=== PATIENT | female | born 1950 | race Caucasian/White ===

== ENCOUNTER 2018-04-02 15:17 | Outpatient (CLI) | payer OTHER ==
[~2018-04-02 15:17] MED LIST: Iopamidol 370 76% 100 ML VIAL ONE
--- NOTE | 2018-04-02 17:55 | CT ---
CT OF CHEST PERFORMED WITH INTRAVENOUS CONTRAST ENHANCEMENT: 04/02/18 HISTORY: Lower lobe pneumonia. Cough for months. COMPARISON: A 04/13/16 CT examination and a chest x-ray of 11/13/17. There is a persistent parenchymal density in the left upper lobe with air bronchograms somewhat mass- like in appearance but relatively stable. Questionably slightly more prominent on today's study as co mpared to the prior examination. Given the minimal ion exchange operator the time interval, I would favor that this still represents scarring. There is still some residual changes within the right middle lobe. Th izabel are somewhat less prominent than the prior examination. Some of the changes along the anterior an d most medial border of the right middle lobe in the anterior recess region are more prominent and co uld indicate that there is a combination of some scarring and some acute infiltrative element. The lo wer lobes are unremarkable. Parenchymal changes in the lung bases seen on the previous study have res olved. I do not appreciate any significant mediastinal or hilar adenopathy. The thoracic aorta is normal in caliber. No significant axillary adenopathy. The visualized liver parenchyma shows no focal findings. Right and left adrenal glands are normal. IMPRESSION: 1. Left upper lobe parenchymal density which appears to represent scar relatively stable as comp ared to the 2017 study. 2. Right middle lobe parenchymal changes have changed slightly in character since the prior exam ination. More of the changes were lying along the major fissure on the prior study, now slightly more prominent parenchymal changes in the anterior recess region which could indicate there is some acute infiltrative element in this area. POS: DION
== END 2018-04-02 15:18 | disposition home or self-care (01) ==
LOC: BICCT 15:17
PROVIDERS: ATTEND Family Medicine
DX: J18.1 Lobar pneumonia, unspecified organism (principal)
CPT/HCPCS: 71260; 82565

== ENCOUNTER 2018-04-27 08:36 | Outpatient (CLI) | payer OTHER ==
--- NOTE | 2018-05-31 13:20 | MMO ---
Bilateral MAMMO Bilat Screen [facility]. CLINICAL HISTORY: Patient is 67 years old and is seen for screening. The patient has no family history of breast cancer. The patient has no personal history of cancer. VIEWS: The views performed were: bilateral craniocaudal with tomosynthesis and bilateral mediolateral oblique with tomosynthesis. MAMMOGRAM FINDINGS: There are scattered fibroglandular densities. Finding 1: This mammogram will be treated as a baseline mammogram as attempts to obtain prior mammogram images have been unsuccessful. Finding 2: There are vascular calcifications seen in both breasts. Finding 3: There is a focal asymmetry seen in the upper-outer region of the left breast. IMPRESSION: FINDING 3: FOCAL ASYMMETRY IN THE LEFT BREAST REQUIRES ADDITIONAL EVALUATION. ADDITIONAL PROJECTIONS ARE RECOMMENDED. AN ULTRASOUND EXAM IS RECOMMENDED IF NEEDED. THE RESULTS OF THIS EXAM WERE SENT TO THE PATIENT. ACR BI-RADS Category 0 - Incomplete: Need additional imaging evaluation. [facility] will notify the patient of the need for additional imaging services. MAMMOGRAPHY NOTE: 1. A negative mammogram report should not delay a biopsy if a dominant of clinically suspicious mass is present. 2. Approximately 10% to 15% of breast cancers are not detected by mammography. 3. Adenosis and dense breasts may obscure an underlying neoplasm.
== END 2018-04-27 08:37 | disposition home or self-care (01) ==
LOC: BICMAMMO 08:36
PROVIDERS: ATTEND Family Medicine
DX: Z12.31 Encounter for screening mammogram for malignant neoplasm of breast (principal); N64.89 Other specified disorders of breast
CPT/HCPCS: 77063; 77067

== ENCOUNTER 2018-06-14 08:23 | Outpatient (CLI) | payer OTHER ==
--- NOTE | 2018-06-14 09:27 | MMO ---
Left Breast MAMMO Unilat Diag [facility]. CLINICAL HISTORY: Patient is 67 years old and is seen for follow-up at short-interval from prior study. The patient has no family history of breast cancer. The patient has no personal history of cancer. VIEWS: The views performed were: left craniocaudal spot compression; left mediolateral oblique spot compression; and left mediolateral with tomosynthesis. FILMS COMPARED: The present examination has been compared to prior imaging studies performed at [facility] on 04/27/2018 and 06/14/2018. MAMMOGRAM FINDINGS: There are scattered fibroglandular densities. There is a focal asymmetry seen in the left breast. Small cyst on ultrasound may represent mammo finding. IMPRESSION: FOCAL ASYMMETRY IN THE LEFT BREAST IS PROBABLY BENIGN. FOLLOW-UP IN 6 MONTHS IS RECOMMENDED. THE RESULTS OF THIS EXAM WERE SENT TO THE PATIENT. ACR BI-RADS Category 3 - Probably benign finding - short interval follow-up suggested. [facility] will notify the patient of the need for additional imaging services. MAMMOGRAPHY NOTE: 1. A negative mammogram report should not delay a biopsy if a dominant of clinically suspicious mass is present. 2. Approximately 10% to 15% of breast cancers are not detected by mammography. 3. Adenosis and dense breasts may obscure an underlying neoplasm.
--- NOTE | 2018-06-14 10:12 | ULT ---
LEFT BREAST ULTRASOUND: HISTORY: Followup abnormality on left breast mammogram from 06/14/2018 and 04/27/2018. FINDINGS: A nodular area of concern was noted in the upper outer left breast on prior mammogram. This area is evaluated with ultrasound from the 9 o'clock to 12 o'clock position. In the 10 o'clock position 4 cm from the nipple there is a very small approximately 0.2 x 0.4 x 0.3 cm diameter cyst. I am not cert ain whether this corresponds to the mammographic area or not. IMPRESSION: BIRADS category 3, probably benign findings. Six-month followup left unilateral diagnostic mammogram and left breast ultrasound recommended for further assessment. POS: OFF
== END 2018-06-14 08:24 | disposition home or self-care (01) ==
LOC: BICMAMMO 08:23
PROVIDERS: ATTEND Family Medicine
DX: N64.89 Other specified disorders of breast (principal)
CPT/HCPCS: G0279

== ENCOUNTER 2019-05-03 13:07 | Outpatient (CLI) | payer MEDICARE, BC ==
--- NOTE | 2019-05-03 13:24 | RAD ---
EXAM: Chest 2 views: HISTORY: Dyspnea COMPARISON: None. FINDINGS: There is a normal-sized cardiomediastinal silhouette. There is no evidence of consolidation, mass, or pleural effusion. Degenerative changes are seen in the spine. Hardware seen in the cervical spine. IMPRESSION: No evidence of acute cardiopulmonary disease
== END 2019-05-03 13:08 | disposition home or self-care (01) ==
LOC: RAD 13:07
PROVIDERS: ATTEND Internal Medicine
DX: R06.00 Dyspnea, unspecified (principal)
CPT/HCPCS: 71046

== ENCOUNTER 2020-07-24 09:47 | Outpatient (CLI) | payer MEDICARE | END 2020-07-24 09:48 | disposition home or self-care (01) | LOC: BICRAD 09:47 | PROVIDERS: ATTEND Internal Medicine Critical Care Medicine | DX: R06.00 Dyspnea, unspecified (principal) | CPT/HCPCS: 71046 ==

== ENCOUNTER 2021-07-24 10:25 | Outpatient (CLI) | payer BC, MEDICARE, OTHER ==
[2019-12-02 12:01] LABS: SARS-CoV-2 MS2 Positive; SARS-CoV-2 N Gene Negative; SARS-CoV-2 S Gene Negative; SARS-CoV-2 by NAA Not Detected (NotDetected); SARS-CoV-2 orf1ab Negative
== END 2021-07-24 10:26 | disposition home or self-care (01) ==
LOC: RAD 10:25
PROVIDERS: ATTEND Internal Medicine Critical Care Medicine
DX: R06.00 Dyspnea, unspecified (principal)
CPT/HCPCS: 71046; U0003

== ENCOUNTER 2022-10-30 14:22 | Outpatient (CLI) | payer MEDICARE | END 2022-10-30 14:23 | disposition home or self-care (01) | LOC: SCSMRI 14:22 | PROVIDERS: ATTEND Orthopaedic Surgery | DX: M24.811 Other specific joint derangements of right shoulder, not elsewhere classified (principal); M75.121 Complete rotator cuff tear or rupture of right shoulder, not specified as traumatic; M19.011 Primary osteoarthritis, right shoulder; M25.411 Effusion, right shoulder; M67.813 Other specified disorders of tendon, right shoulder ==

== ENCOUNTER 2022-11-18 08:39 | Outpatient (CLI) | payer MEDICARE ==
[2022-11-18 10:08] LABS: #Basophils 0.1 10x3/uL (0.0-0.2); #Eosinphils 0.1 10x3/uL (0.0-0.5); #Monocytes 0.5 10x3/uL (0.0-1.1); #Neutrophils 3.4 10x3/uL (1.5-8.4); %Eosinophils 2.3 % (0.0-6.0); %Lymphocytes 31.9 % (18.0-47.0); %Monocytes 8.7 % (0.0-10.0); %Neutrophils 55.9 % (40.0-75.0); Hematocrit 40.9 % (34.9-44.5); Hemoglobin 13.3 g/dL (12.0-15.5); Mean Corpuscular HGB CONC 32.5 g/dL (32.0-36.0); Mean Corpuscular Hemoglobin 29.6 pg (27.0-33.0); Mean Corpuscular Volume 90.9 fl (81.6-98.3); Mean Platelet Volume 10.6 fl (7.4-10.4); Platelet Count 195 10x3/uL (150-450); RBC Distribution Width 13.2 % (11.5-14.5); White Blood Cell (WBC) Count 6.1 10x3/uL (3.5-10.5)
[2022-11-18 10:17] LABS: Anion Gap 13 mmol/L (10-20); BUN (Urea Nitrogen) 12 mg/dL (9.8-20.1); Calc. Creatinine Clearance 0 mL/min (70-130); Calcium 9.2 mg/dL (7.8-10.44); Carbon Dioxide 28 mmol/L (23-31); Chloride 105 mmol/L (98-107); Estimated GFR 83; Glucose 93 mg/dL (83-110); Potassium 4.1 mmol/L (3.5-5.1); Sodium 142 mmol/L (136-145)
== END 2022-11-18 08:40 | disposition home or self-care (01) ==
LOC: LABBT 08:39
PROVIDERS: ATTEND Orthopaedic Surgery
DX: Z01.818 Encounter for other preprocedural examination (principal); S46.011A Strain of muscle(s) and tendon(s) of the rotator cuff of right shoulder, initial encounter
CPT/HCPCS: 80048; 85025; 93005; 93010

== ENCOUNTER 2022-11-21 08:42 | Day surgery (SDC) | payer MEDICARE ==
[2022-11-18 09:36] VITALS: BMI 24.0
[2022-11-21] MEDS ORDERED: Vancomycin 1 GM/200 ML (FROZEN) BAG ONE (09:15)
[2022-11-21] MEDS ORDERED: Midazolam HCl 2 mg/2 ml Vial ONE (10:06)
[2022-11-21] MEDS ORDERED: fentaNYL 50 mcg/mL 1 mL Vial ONE ×2 (10:06→10:37)
[2022-11-21] MEDS ORDERED: Bupivacaine PF 0.5% 30 ML VIAL ONE (10:06)
[2022-11-21] MEDS ORDERED: Sodium Chloride 0.9% 0 ML ONE (10:19)
[2022-11-21] MEDS ORDERED: CEFAZOLIN 2 GM VIAL ONE ×2 (10:19→11:35)
[2022-11-21] MEDS ORDERED: Phenylephrine 10 MG/ML VIAL ONE (10:33)
[2022-11-21] MEDS ORDERED: Bupivacaine HCl 0.5%/Epinephrine 1:200,000/PF 30 ml Vial ONE (10:35)
[2022-11-21] MEDS ORDERED: Zolpidem Tartrate 5 MG TAB PO PRN (11:00)
[2022-11-21] MEDS ORDERED: Ondansetron PF 4 MG/2 ML Vial IVP PRN (11:00)
[2022-11-21] MEDS ORDERED: HYDROcodone/Acetaminophen 10/325 mg Tablet PO PRN ×2 (11:00)
[2022-11-21] MEDS ORDERED: traMADol HCl 50 MG TAB PO PRN ×2 (11:00)
[2022-11-21] MEDS ORDERED: Ropivacaine 0.2% 550 ML 550 ML NERVE BLCK SCH (11:00)
[2022-11-21] MEDS ORDERED: Promethazine HCl 25 MG/ML VIAL IM PRN (11:00)
[2022-11-21] MEDS ORDERED: Sodium Chloride 0.9% 100 ML ONE (11:35)
[2022-11-21] MEDS ORDERED: Rocuronium Bromide 10 MG/ML (10ML VIAL) ONE (11:44)
[2022-11-21] MEDS ORDERED: Lidocaine 1% PF 5 ML VIAL ONE (11:44)
[2022-11-21] MEDS ORDERED: NEOSTIGMINE 3 MG/3 ML SYR 3 MG/3 ML SYRINGE ONE (11:44)
[2022-11-21] MEDS ORDERED: Ketorolac Tromethamine 30 MG/ML VIAL ONE (11:44)
[2022-11-21] MEDS ORDERED: Dexamethasone 20 MG/5 ML VIAL ONE (11:44)
[2022-11-21] MEDS ORDERED: PROPOFOL 200 MG/20 ML VIAL ONE (11:44)
[2022-11-21] MEDS ORDERED: Ondansetron PF 4 MG/2 ML Vial ONE (11:44)
[2022-11-21] MEDS ORDERED: Glycopyrrolate 0.2 MG/ML 5 ML SYRINGE ONE (11:44)
[2022-11-21] MEDS ORDERED: ePHEDrine Sulfate 50 MG/10 ML VIAL ONE (11:44)
[2022-11-21] MEDS ORDERED: Ketorolac Tromethamine 30 MG/ML VIAL IVP SCH (12:00)
[2022-11-21] MEDS ORDERED: HYDROcodone/Acetaminophen 5/325 mg Tablet ONE (17:26)
== END 2022-11-21 16:00 | disposition home or self-care (01) ==
LOC: SDC 08:42
PROVIDERS: ATTEND Orthopaedic Surgery
PROC: 0LS30ZZ Reposition Right Upper Arm Tendon, Open Approach (ICD-10-PCS; principal; 2022-11-21)
DX: S46.011S Strain of muscle(s) and tendon(s) of the rotator cuff of right shoulder, sequela (principal); M75.41 Impingement syndrome of right shoulder; J40 Bronchitis, not specified as acute or chronic; J18.9 Pneumonia, unspecified organism; Z98.890 Other specified postprocedural states; Z87.891 Personal history of nicotine dependence; Z79.899 Other long term (current) drug therapy
CPT/HCPCS: 23420; 23430; A4306; J3010; J3370; C1713; J1100; J1885; J2250; J2370; J2405; J2704; J2795; J3490; S0020